=== PATIENT | female | born 2000 | race Caucasian/White ===

== ENCOUNTER 2022-02-02 09:51 | Outpatient (CLI) | payer OTHER | END 2022-02-03 10:45 | disposition home or self-care (01) | LOC: OBS/DEL 09:51 | PROVIDERS: ATTEND Obstetrics & Gynecology | DX: O47.1 False labor at or after 37 completed weeks of gestation (principal); O23.43 Unspecified infection of urinary tract in pregnancy, third trimester; N39.0 Urinary tract infection, site not specified; Z3A.37 37 weeks gestation of pregnancy; Z20.822 Contact with and (suspected) exposure to COVID-19 ==

== ENCOUNTER 2022-02-06 11:15 | Inpatient (IN) | payer OTHER ==
[~2022-02-06] VITALS: Ht 162.6 cm; Wt 83.0 kg
[2022-02-13] MEDS ORDERED: PRENATAL CAPLE1 EAC1 (07:37)
== END 2022-02-15 13:46 | disposition home or self-care (01) | DRG 807 ==
LOC: LDR 02-13 06:32 → OB/GYN 02-13 06:32
PROVIDERS: ADMIT Obstetrics & Gynecology; ATTEND Obstetrics & Gynecology
PROC: 10E0XZZ Delivery of Products of Conception, External Approach (ICD-10-PCS; principal; 2022-02-13)
PROC: 4A1HXCZ Monitoring of Products of Conception, Cardiac Rate, External Approach (ICD-10-PCS; 2022-02-13)
DX: O80 Encounter for full-term uncomplicated delivery (principal); Z37.0 Single live birth; Z3A.39 39 weeks gestation of pregnancy; Z20.822 Contact with and (suspected) exposure to COVID-19